=== PATIENT | female | born 1985 | race African-American/Black ===

== ENCOUNTER 2017-12-18 12:25 | Observation (INO) | payer MEDICAID ==
[~2017-12-18] VITALS: Ht 157.5 cm; Wt 102.1 kg
[2017-12-18] MEDS ORDERED: NIFEdipine 10 MG CAP PO ONE ×2 (14:29→14:30)
[2017-12-18] MEDS ORDERED: NIFEdipine 10 MG CAP ONE (14:29)
[2017-12-18] MEDS ORDERED: LACTATED RINGER'S 1,000 ML IV ONE (14:30)
[2017-12-18] MEDS ORDERED: ceFAZolin 1GM/100ML 100 ML IV ONE (14:30)
[2017-12-18] MEDS ORDERED: NIF10C GT (16:27)
== END 2017-12-18 16:20 | disposition home or self-care (01) | DRG 566 ==
LOC: LDRP 12:25
PROVIDERS: ADMIT Specialist; ATTEND Specialist
DX: O24.419 Gestational diabetes mellitus in pregnancy, unspecified control (principal); O60.03 Preterm labor without delivery, third trimester; Z3A.32 32 weeks gestation of pregnancy
CPT/HCPCS: 59025; 76818; 81002; 82948; 82962; 96365; G0378; J0690; 96366

== ENCOUNTER 2017-12-21 11:51 | Observation (INO) | payer MEDICAID ==
[~2017-12-21 11:51] MED LIST: NIF10C GT
[2017-12-21] MEDS ORDERED: TERBUTALINE SULFATE 1 MG/ML 1ML VIAL SC SCH (13:00)
== END 2017-12-21 14:25 | disposition home or self-care (01) | DRG 566 ==
LOC: LDRP 11:51
PROVIDERS: ADMIT Obstetrics & Gynecology; ATTEND Obstetrics & Gynecology
DX: O24.419 Gestational diabetes mellitus in pregnancy, unspecified control (principal); Z3A.00 Weeks of gestation of pregnancy not specified
CPT/HCPCS: 59025; 76818; 81002; 82948; 82962; 96372; G0378; J3105

== ENCOUNTER 2017-12-24 14:06 | Observation (INO) | payer MEDICAID | END 2017-12-24 16:05 | disposition home or self-care (01) | DRG 566 | LOC: LDRP 14:06 | PROVIDERS: ADMIT Specialist; ATTEND Specialist | DX: O24.419 Gestational diabetes mellitus in pregnancy, unspecified control (principal); O60.00 Preterm labor without delivery, unspecified trimester; Z3A.00 Weeks of gestation of pregnancy not specified | CPT/HCPCS: 59025; 76815; 76818; 81002; 82948; 82962; G0378 ==

== ENCOUNTER 2017-12-28 13:50 | Observation (INO) | payer OTHER ==
[2017-12-28] MEDS ORDERED: INSLANTI SC (14:12)
== END 2017-12-28 15:25 | disposition home or self-care (01) | DRG 566 ==
LOC: LDRP 13:50
PROVIDERS: ADMIT Specialist; ATTEND Specialist
DX: O24.419 Gestational diabetes mellitus in pregnancy, unspecified control (principal); O60.03 Preterm labor without delivery, third trimester; Z3A.33 33 weeks gestation of pregnancy
CPT/HCPCS: 59025; 76818; 81002; 82948; 82962; G0378

== ENCOUNTER 2017-12-31 11:00 | Observation (INO) | payer MEDICAID, OTHER ==
[~2017-12-31 11:00] MED LIST changes: +INSLANTI SC
[2017-12-31] MEDS ORDERED: PREN27TA7 PO (12:57)
== END 2017-12-31 13:15 | disposition home or self-care (01) | DRG 563 ==
LOC: LDRP 11:00
PROVIDERS: ADMIT Specialist; ATTEND Specialist
DX: O60.03 Preterm labor without delivery, third trimester (principal); Z3A.34 34 weeks gestation of pregnancy
CPT/HCPCS: 59025; 76818; 81002; G0378

== ENCOUNTER 2018-01-04 10:25 | Observation (INO) | payer MEDICAID ==
[~2018-01-04 10:25] MED LIST changes: +PREN27TA7 PO
== END 2018-01-04 11:55 | disposition home or self-care (01) | DRG 566 ==
LOC: LDRP 10:25
PROVIDERS: ADMIT Obstetrics & Gynecology; ATTEND Obstetrics & Gynecology
DX: O24.419 Gestational diabetes mellitus in pregnancy, unspecified control (principal); O60.03 Preterm labor without delivery, third trimester; O09.513 Supervision of elderly primigravida, third trimester; Z3A.34 34 weeks gestation of pregnancy
CPT/HCPCS: 76818; G0378; 59025; 81002

== ENCOUNTER 2018-01-07 10:35 | Observation (INO) | payer MEDICAID | END 2018-01-07 12:45 | disposition home or self-care (01) | DRG 566 | LOC: LDRP 10:35 | PROVIDERS: ADMIT Obstetrics & Gynecology; ATTEND Obstetrics & Gynecology | DX: O24.419 Gestational diabetes mellitus in pregnancy, unspecified control (principal); O60.03 Preterm labor without delivery, third trimester; Z3A.35 35 weeks gestation of pregnancy | CPT/HCPCS: 59025; 76818; 81002; G0378 ==

== ENCOUNTER 2018-01-11 11:00 | Observation (INO) | payer MEDICAID | END 2018-01-11 12:05 | disposition home or self-care (01) | DRG 566 | LOC: LDRP 11:00 | PROVIDERS: ADMIT Specialist; ATTEND Specialist | DX: O24.419 Gestational diabetes mellitus in pregnancy, unspecified control (principal); O60.03 Preterm labor without delivery, third trimester; Z3A.35 35 weeks gestation of pregnancy | CPT/HCPCS: 59025; 76818; 81002; 82948; G0378 ==

== ENCOUNTER 2018-01-14 10:20 | Observation (INO) | payer MEDICAID | END 2018-01-14 11:25 | disposition home or self-care (01) | DRG 566 | LOC: LDRP 10:20 | PROVIDERS: ADMIT Specialist; ATTEND Specialist | DX: O24.419 Gestational diabetes mellitus in pregnancy, unspecified control (principal); O09.513 Supervision of elderly primigravida, third trimester; Z3A.36 36 weeks gestation of pregnancy | CPT/HCPCS: 59025; 76818; 81002; 82948; 82962; G0378 ==

== ENCOUNTER 2018-01-16 11:10 | Observation (INO) | payer MEDICAID ==
[~2018-01-16] VITALS: Ht 157.5 cm; Wt 106.1 kg
[2018-01-16] MEDS: TERBUTALINE SULFATE 1 MG/ML 1ML VIAL SC SCH ×2 (13:10→13:55)
[2018-01-16] MEDS ORDERED: BETAMETHASONE ACET (6MG/ML) 5ML VIAL IM SCH (15:00)
== END 2018-01-16 15:10 | disposition home or self-care (01) | DRG 566 ==
LOC: LDRP 11:10
PROVIDERS: ADMIT Obstetrics & Gynecology; ATTEND Obstetrics & Gynecology
DX: O24.419 Gestational diabetes mellitus in pregnancy, unspecified control (principal); O60.03 Preterm labor without delivery, third trimester; O62.9 Abnormality of forces of labor, unspecified; Z3A.36 36 weeks gestation of pregnancy
CPT/HCPCS: 59025; 76818; 81002; 96372; G0378; J0702; J3105

== ENCOUNTER 2018-01-17 14:16 | Observation (INO) | payer MEDICAID ==
[~2018-01-17] VITALS: Ht 157.5 cm; Wt 88.9 kg
[2018-01-17] MEDS ORDERED: BETAMETHASONE ACET (6MG/ML) 5ML VIAL IM ONE (14:30)
== END 2018-01-17 15:10 | disposition home or self-care (01) | DRG 566 ==
LOC: INTOOBSV 14:16 → LDRP 14:16
PROVIDERS: ADMIT Obstetrics & Gynecology; ATTEND Obstetrics & Gynecology
DX: O24.419 Gestational diabetes mellitus in pregnancy, unspecified control (principal); O09.513 Supervision of elderly primigravida, third trimester; O60.03 Preterm labor without delivery, third trimester; Z3A.36 36 weeks gestation of pregnancy
CPT/HCPCS: 59025; 81002; 96372; G0378

== ENCOUNTER 2018-01-20 09:56 | Observation (INO) | payer MEDICAID | END 2018-01-20 12:10 | disposition home or self-care (01) | DRG 566 | LOC: LDRP 09:56 | PROVIDERS: ADMIT Obstetrics & Gynecology; ATTEND Obstetrics & Gynecology | DX: O24.419 Gestational diabetes mellitus in pregnancy, unspecified control (principal); O09.513 Supervision of elderly primigravida, third trimester; O62.9 Abnormality of forces of labor, unspecified; Z3A.37 37 weeks gestation of pregnancy | CPT/HCPCS: 59025; 76818; 81002; 82948; 82962; G0378 ==

== ENCOUNTER 2018-01-23 13:31 | Observation (INO) | payer MEDICAID | END 2018-01-23 15:10 | disposition home or self-care (01) | DRG 566 | LOC: LDRP 13:31 | PROVIDERS: ADMIT Specialist; ATTEND Specialist | DX: O24.419 Gestational diabetes mellitus in pregnancy, unspecified control (principal); Z3A.37 37 weeks gestation of pregnancy | CPT/HCPCS: 76818; 82962; G0378; 59025; 81002 ==

== ENCOUNTER 2018-01-27 13:03 | Observation (INO) | payer MEDICAID ==
[~2018-01-27 13:03] MED LIST changes: -NIF10C GT
== END 2018-01-27 15:05 | disposition home or self-care (01) | DRG 566 ==
LOC: LDRP 13:03
PROVIDERS: ADMIT Specialist; ATTEND Specialist
DX: O24.419 Gestational diabetes mellitus in pregnancy, unspecified control (principal); O26.893 Other specified pregnancy related conditions, third trimester; N89.8 Other specified noninflammatory disorders of vagina; O62.9 Abnormality of forces of labor, unspecified; Z3A.38 38 weeks gestation of pregnancy
CPT/HCPCS: 59025; 76818; 81002; 82962; G0378

== ENCOUNTER 2018-01-30 10:31 | Observation (INO) | payer MEDICAID | END 2018-01-30 12:05 | disposition home or self-care (01) | DRG 566 | LOC: LDRP 10:31 | PROVIDERS: ADMIT Obstetrics & Gynecology; ATTEND Obstetrics & Gynecology | DX: O24.419 Gestational diabetes mellitus in pregnancy, unspecified control (principal); Z3A.38 38 weeks gestation of pregnancy | CPT/HCPCS: 59025; 76818; 81002; 82962; G0378 ==

== ENCOUNTER 2020-09-02 13:51 | Emergency (ER) | payer MEDICAID ==
[~2020-09-02] VITALS: Ht 152.4 cm; Wt 93.0 kg
[2020-09-02 13:58] VITALS: BP 120/72
[2020-09-02 15:22] LABS: Eosinophils # (auto) 0 10 ^3/uL (0-0.8); Monocytes # (auto) 0.7 10 ^3/uL (0-1.3); Neutrophils # (auto) 5.9 10 ^3/uL (1.6-8.6); White Blood Cell 8.9 10^3/uL (4.4-10.8)
[2020-09-02 15:25] LABS: Basophils # (auto) 0 10 ^3/uL (0-0.2); Basophils % (auto) 0.5 % (0.0-2.0); Eosinophils % (auto) 0.6 % (0.0-7.0); Hematocrit 37.7 % (36.0-46.0); Hemoglobin 12.2 g/dL (12.2-16.2); Lymphocytes # (auto) 2.1 10 ^3/uL (0.4-5.4); Mean Corpuscular Hemoglobin 25.1 pg (28.0-32.0); Mean Corpuscular Hgb Conc. 32.4 g/dL (32.0-36.0); Mean Corpuscular Volume 77.3 fL (80.0-100.0); Monocytes % (auto) 8.3 % (0.0-12.0); Neutrophils % (auto) 66.6 % (37.0-80.0); Platelet Count (auto) 293 10^3/uL (140-450); Red Blood Cells 4.88 10^6/uL (4.0-5.20); Red Cell Distribution Width 14.8 % (11.8-14.3)
== END 2020-09-02 17:17 | disposition home or self-care (01) ==
LOC: ER 13:51
DX: O20.0 Threatened abortion (principal); Z3A.01 Less than 8 weeks gestation of pregnancy
CPT/HCPCS: 36415; 76801; 76817; 81002; 84702; 85025

== ENCOUNTER 2021-02-19 11:50 | Observation (INO) | payer MEDICAID | END 2021-02-19 13:35 | disposition home or self-care (01) | LOC: LDRP 11:50 | PROVIDERS: ADMIT Obstetrics & Gynecology; ATTEND Obstetrics & Gynecology | DX: O24.419 Gestational diabetes mellitus in pregnancy, unspecified control (principal); Z3A.30 30 weeks gestation of pregnancy; Z98.891 History of uterine scar from previous surgery; Z79.899 Other long term (current) drug therapy | CPT/HCPCS: 59025; 81002; 82948; 82962; 94760; G0378 ==

== ENCOUNTER 2021-02-26 09:50 | Observation (INO) | payer MEDICAID ==
[~2021-02-26 09:50] MED LIST changes: -INSLANTI SC
== END 2021-02-26 11:23 | disposition home or self-care (01) ==
LOC: LDRP 09:50
PROVIDERS: ADMIT Obstetrics & Gynecology; ATTEND Obstetrics & Gynecology
DX: O24.419 Gestational diabetes mellitus in pregnancy, unspecified control (principal); Z3A.31 31 weeks gestation of pregnancy; Z87.891 Personal history of nicotine dependence; Z79.899 Other long term (current) drug therapy
CPT/HCPCS: 59025; 76818; 81002; 82962; 94760; G0378

== ENCOUNTER 2021-03-05 09:44 | Observation (INO) | payer MEDICAID ==
[2021-03-05] MEDS ORDERED: METF-370 PO (10:14)
== END 2021-03-05 10:41 | disposition home or self-care (01) ==
LOC: LDRP 09:44
PROVIDERS: ADMIT Obstetrics & Gynecology; ATTEND Obstetrics & Gynecology
DX: O24.419 Gestational diabetes mellitus in pregnancy, unspecified control (principal); Z3A.32 32 weeks gestation of pregnancy
CPT/HCPCS: 59025; 76818; 81002; 82962; G0378

== ENCOUNTER 2021-03-12 09:36 | Observation (INO) | payer MEDICAID ==
[~2021-03-12 09:36] MED LIST changes: +METF-370 PO
== END 2021-03-12 11:30 | disposition home or self-care (01) ==
LOC: LDRP 09:36
PROVIDERS: ADMIT Obstetrics & Gynecology; ATTEND Obstetrics & Gynecology
DX: O24.415 Gestational diabetes mellitus in pregnancy, controlled by oral hypoglycemic drugs (principal); Z79.84 Long term (current) use of oral hypoglycemic drugs; Z79.899 Other long term (current) drug therapy; Z87.891 Personal history of nicotine dependence; Z3A.33 33 weeks gestation of pregnancy
CPT/HCPCS: 59025; 76818; 81002; 82948; 82962; 94760; G0378

== ENCOUNTER 2021-03-15 18:52 | Observation (INO) | payer MEDICAID ==
[~2021-03-15] VITALS: Ht 157.5 cm; Wt 150.6 kg
== END 2021-03-15 21:11 | disposition home or self-care (01) ==
LOC: LDRP 18:52
PROVIDERS: ADMIT Obstetrics & Gynecology; ATTEND Obstetrics & Gynecology
DX: O24.419 Gestational diabetes mellitus in pregnancy, unspecified control (principal); O09.529 Supervision of elderly multigravida, unspecified trimester; Z3A.33 33 weeks gestation of pregnancy; Z87.891 Personal history of nicotine dependence
CPT/HCPCS: 59025; 76818; 81002; 82948; 82962; 94760; G0378

== ENCOUNTER 2021-03-19 07:35 | Observation (INO) | payer MEDICAID | END 2021-03-19 21:58 | disposition home or self-care (01) | LOC: LDRP 19:10 | PROVIDERS: ADMIT Obstetrics & Gynecology; ATTEND Obstetrics & Gynecology | DX: O24.419 Gestational diabetes mellitus in pregnancy, unspecified control (principal); Z3A.34 34 weeks gestation of pregnancy | CPT/HCPCS: 59025; 76818; 81002; 82948; 82962; G0378 ==

== ENCOUNTER 2021-03-22 19:10 | Observation (INO) | payer MEDICAID ==
[~2021-03-22] VITALS: Ht 157.5 cm; Wt 146.5 kg
== END 2021-03-22 20:51 | disposition home or self-care (01) ==
LOC: LDRP 19:10
PROVIDERS: ADMIT Obstetrics & Gynecology; ATTEND Obstetrics & Gynecology
DX: O24.419 Gestational diabetes mellitus in pregnancy, unspecified control (principal); Z3A.34 34 weeks gestation of pregnancy
CPT/HCPCS: 59025; 76818; 81002; 82948; 82962; 94760; G0378

== ENCOUNTER 2021-03-26 13:22 | Observation (INO) | payer MEDICAID | END 2021-03-26 14:44 | disposition home or self-care (01) | LOC: LDRP 13:22 | PROVIDERS: ADMIT Obstetrics & Gynecology; ATTEND Obstetrics & Gynecology | DX: O24.419 Gestational diabetes mellitus in pregnancy, unspecified control (principal); Z3A.35 35 weeks gestation of pregnancy; Z87.891 Personal history of nicotine dependence | CPT/HCPCS: 76818; 82962; G0378; 59025; 81002; 82948 ==

== ENCOUNTER 2021-03-29 15:53 | Observation (INO) | payer MEDICAID | END 2021-03-29 17:45 | disposition home or self-care (01) | LOC: LDRP 15:53 | PROVIDERS: ADMIT Obstetrics & Gynecology; ATTEND Obstetrics & Gynecology | DX: O24.419 Gestational diabetes mellitus in pregnancy, unspecified control (principal); Z3A.35 35 weeks gestation of pregnancy; Z87.891 Personal history of nicotine dependence | CPT/HCPCS: 59025; 76818; 81002; 82948; 82962; 94760; G0378 ==

== ENCOUNTER 2021-04-03 09:02 | Observation (INO) | payer MEDICAID ==
[2021-04-03 10:06] LABS: Basophils # (auto) 0 10 ^3/uL (0-0.2); Basophils % (auto) 0.4 % (0.0-2.0); Eosinophils # (auto) 0 10 ^3/uL (0-0.8); Eosinophils % (auto) 0.4 % (0.0-7.0); Lymphocytes # (auto) 1.3 10 ^3/uL (0.4-5.4)
[2021-04-03 10:08] LABS: Hematocrit 36.3 % (36.0-46.0); Hemoglobin 11.9 g/dL (12.2-16.2); Lymphocytes % (auto) 17.6 % (10.0-50.0); Mean Corpuscular Hemoglobin 24.6 pg (28.0-32.0); Mean Corpuscular Hgb Conc. 32.7 g/dL (32.0-36.0); Mean Corpuscular Volume 75.3 fL (80.0-100.0); Monocytes # (auto) 0.7 10 ^3/uL (0-1.3); Monocytes % (auto) 9.2 % (0.0-12.0); Neutrophils # (auto) 5.5 10 ^3/uL (1.6-8.6); Neutrophils % (auto) 72.4 % (37.0-80.0); Nucleated Red Blood Cells % 0.1 %; Red Blood Cells 4.83 10^6/uL (4.0-5.20); White Blood Cell 7.7 10^3/uL (4.4-10.8)
[2021-04-04 06:06] LABS: RPR Non Reactive (Non Reactive)
== END 2021-04-03 10:25 | disposition home or self-care (01) ==
LOC: LDRP 09:02
PROVIDERS: ADMIT Obstetrics & Gynecology; ATTEND Obstetrics & Gynecology
DX: O24.435 Gestational diabetes mellitus in puerperium, controlled by oral hypoglycemic drugs (principal); Z3A.36 36 weeks gestation of pregnancy
CPT/HCPCS: 36415; 59025; 76818; 81002; 82948; 82962; 83036; 85025; 86592; G0378; G0379

== ENCOUNTER 2021-04-05 07:22 | Observation (INO) | payer MEDICAID ==
[~2021-04-05] VITALS: Ht 157.5 cm; Wt 107.5 kg
[2021-04-05] MEDS: TERBUTALINE SULFATE 1 MG/ML 1ML VIAL SC SCH ×3 (18:08→19:22)
[2021-04-05] MEDS ORDERED: NIFEdipine 10 MG CAP PO ONE (19:15)
[2021-04-05] MEDS ORDERED: NIF10C PO (20:46)
== END 2021-04-05 20:54 | disposition home or self-care (01) ==
LOC: LDRP 15:56
PROVIDERS: ADMIT Obstetrics & Gynecology; ATTEND Obstetrics & Gynecology
DX: O24.419 Gestational diabetes mellitus in pregnancy, unspecified control (principal); Z3A.36 36 weeks gestation of pregnancy; Z98.891 History of uterine scar from previous surgery
CPT/HCPCS: 59025; 76818; 81002; 82948; 82962; 94760; 96372; G0378; J3105

== ENCOUNTER 2021-04-07 15:46 | Observation (INO) | payer MEDICAID ==
[~2021-04-07 15:46] MED LIST changes: +NIF10C PO
== END 2021-04-07 16:25 | disposition home or self-care (01) ==
LOC: LDRP 15:46
PROVIDERS: ADMIT Obstetrics & Gynecology; ATTEND Obstetrics & Gynecology
DX: O24.419 Gestational diabetes mellitus in pregnancy, unspecified control (principal); O62.9 Abnormality of forces of labor, unspecified; Z3A.37 37 weeks gestation of pregnancy
CPT/HCPCS: 59025; 81002; 82962; 94760; G0378; G0379

== ENCOUNTER 2021-04-10 10:18 | Observation (INO) | payer MEDICAID ==
[~2021-04-10] VITALS: Ht 157.5 cm; Wt 106.6 kg
== END 2021-04-10 12:00 | disposition home or self-care (01) ==
LOC: LDRP 10:22
PROVIDERS: ADMIT Obstetrics & Gynecology; ATTEND Obstetrics & Gynecology
DX: O24.419 Gestational diabetes mellitus in pregnancy, unspecified control (principal); Z3A.37 37 weeks gestation of pregnancy; Z98.891 History of uterine scar from previous surgery
CPT/HCPCS: 59025; 76818; 81002; 82948; 82962; 94760; G0378

== ENCOUNTER 2021-04-12 16:12 | Observation (INO) | payer MEDICAID | END 2021-04-12 17:35 | disposition home or self-care (01) | LOC: LDRP 16:12 | PROVIDERS: ADMIT Obstetrics & Gynecology; ATTEND Obstetrics & Gynecology | DX: O24.419 Gestational diabetes mellitus in pregnancy, unspecified control (principal); Z3A.37 37 weeks gestation of pregnancy; Z87.891 Personal history of nicotine dependence | CPT/HCPCS: 59025; 76818; 81002; 82948; 82962; G0378; G0379 ==

== ENCOUNTER 2021-04-17 09:55 | Observation (INO) | payer MEDICAID | END 2021-04-17 12:03 | disposition home or self-care (01) | LOC: LDRP 09:55 | PROVIDERS: ADMIT Obstetrics & Gynecology; ATTEND Obstetrics & Gynecology | DX: O24.419 Gestational diabetes mellitus in pregnancy, unspecified control (principal); Z3A.38 38 weeks gestation of pregnancy; Z87.891 Personal history of nicotine dependence | CPT/HCPCS: 59025; 76818; 81002; 82962; G0378 ==

== ENCOUNTER 2021-04-20 03:49 | Inpatient (IN) | payer MEDICAID ==
[2021-04-20] VITALS (10 sets, daily range): BP systolic 104–135; BP diastolic 39–74
[~2021-04-20] VITALS: Ht 157.5 cm; Wt 105.2 kg
[2021-04-20] MEDS ORDERED: LACTATED RINGER'S 1,000 ML IV ONE (04:15)
[2021-04-20 04:52] LABS: Hematocrit 36.8 % (36.0-46.0); Hemoglobin 12.1 g/dL (12.2-16.2); Neutrophils # (auto) 4.6 10 ^3/uL (1.6-8.6)
[2021-04-20 04:54] LABS: Basophils # (auto) 0 10 ^3/uL (0-0.2); Basophils % (auto) 0.5 % (0.0-2.0); Eosinophils # (auto) 0 10 ^3/uL (0-0.8); Eosinophils % (auto) 0.5 % (0.0-7.0); Lymphocytes % (auto) 27.1 % (10.0-50.0); Mean Corpuscular Hemoglobin 24.4 pg (28.0-32.0); Mean Corpuscular Hgb Conc. 32.8 g/dL (32.0-36.0); Mean Corpuscular Volume 74.4 fL (80.0-100.0); Monocytes # (auto) 0.8 10 ^3/uL (0-1.3); Neutrophils % (auto) 61.9 % (37.0-80.0); Red Blood Cells 4.94 10^6/uL (4.0-5.20); Red Cell Distribution Width 15.5 % (11.8-14.3); White Blood Cell 7.5 10^3/uL (4.4-10.8)
[2021-04-20 05:02] LABS: INR 0.94 (0.9-1.15); Partial Thromboplastin Time 26.9 sec (23.6-33.0)
[2021-04-20 05:08] LABS: Albumin 2.4 g/dL (3.4-5.0); Calcium 8.9 mg/dL (8.5-10.1); Potassium 3.7 mmol/L (3.5-5.1)
[2021-04-20 05:10] LABS: Bilirubin, Total 0.2 mg/dL (0.2-1.0); Total Protein 6.7 g/dL (6.4-8.2)
[2021-04-20 05:42] LABS: Alcohol, Urine < 3.0 mg/dL (0-10); Amphetamine Screen, Urine NEGATIVE (NEGATIVE); Barbiturate Scree,Urine NEGATIVE (NEGATIVE); Benzodiazephine Screen, Urine NEGATIVE (NEGATIVE); Cannabinoid Screen, Urine NEGATIVE (NEGATIVE); Cocaine Screen, Urine NEGATIVE (NEGATIVE); Opiate Scree,Urine NEGATIVE (NEGATIVE); Phencyclidine Screen, Urine NEGATIVE (NEGATIVE)
[2021-04-20] MEDS: LACTATED RINGER'S 1,000 ML IV SCH ×2 (05:42→15:45)
[2021-04-20 05:57] LABS: Urine Bacteria FEW /hpf (None Seen); Urine Blood Negative /uL (Negative); Urine Specific Gravity 1.003 (1.001-1.035); Urine WBC 2 /hpf (0 - 5)
[2021-04-20] MEDS ORDERED: ceFAZolin 1GM/50ML 50 ML IV ONE (06:00)
[2021-04-20] MEDS ORDERED: TETRACAINE 1% INJ 2 ML VIAL IJ ONE (07:52)
[2021-04-20] MEDS ORDERED: ONDANSETRON HCL 4 MG/2 ML VIAL ONE (07:54)
[2021-04-20] MEDS ORDERED: oxyTOCIN 10 UNIT/ML 10ML VIAL ONE (07:54)
[2021-04-20] MEDS ORDERED: BUPIVACAINE/DEXTROSE MPF 0.75% 2 ML AMP IT ONE (07:54)
[2021-04-20] MEDS ORDERED: MORPHINE SULF PF 2 MG/2 ML SYRG ONE ×2 (07:54→07:55)
[2021-04-20] MEDS ORDERED: EPINEPHrine HCL 1 MG/1 ML AMP ONE (07:54)
[2021-04-20] MEDS ORDERED: MIDAZOLAM HCL 2MG/2ML 2ml VIAL (1mg/ml) ONE (07:54)
[2021-04-20] MEDS ORDERED: fentaNYL CITRATE 100 MCG/2 ML VL ONE (07:54)
[2021-04-20] MEDS ORDERED: ePHEDrine SULFATE 50 MG/ML AMP ONE (08:36)
[2021-04-20] MEDS ORDERED: GUM (CHEWING) 1 GUM CHEW CHEW ONE (09:00)
[2021-04-20] MEDS ORDERED: ceFAZolin 1GM/50ML 50 ML IV SCH (09:00)
[2021-04-20] MEDS ORDERED: ONDANSETRON HCL 4 MG/2 ML VIAL IV PRN (09:00)
[2021-04-20] MEDS ORDERED: LACT. RINGERS/OXYTOCIN 20UNITS 1,000 ML IV ONE (09:00)
[2021-04-20] MEDS ORDERED: MORPHINE SULFATE 4 MG/ML SYR/VIAL IV PRN (10:45)
[2021-04-20] MEDS: HYDROmorphone HCL 2 MG/ML VL IV PRN ×3 (11:44→20:44)
[2021-04-20] MEDS: ACETAMINOPHEN IV 1000 MG/100ML (10MG/ML) IV PRN ×2 (12:47→21:51)
[2021-04-20] MEDS: ceFAZolin 1GM/50ML 50 ML IV SCH ×2 (15:50→23:33)
[2021-04-20 21:12] LABS: Mean Corpuscular Hemoglobin 23.9 pg (28.0-32.0)
[2021-04-20 21:13] LABS: Basophils # (auto) 0 10 ^3/uL (0-0.2); Basophils % (auto) 0.3 % (0.0-2.0); Eosinophils # (auto) 0 10 ^3/uL (0-0.8); Eosinophils % (auto) 0.1 % (0.0-7.0); Hematocrit 34.8 % (36.0-46.0); Lymphocytes # (auto) 1.2 10 ^3/uL (0.4-5.4); Lymphocytes % (auto) 14.3 % (10.0-50.0); Mean Corpuscular Hgb Conc. 31.7 g/dL (32.0-36.0); Mean Corpuscular Volume 75.4 fL (80.0-100.0); Monocytes # (auto) 0.9 10 ^3/uL (0-1.3); Monocytes % (auto) 10.7 % (0.0-12.0); Neutrophils # (auto) 6.1 10 ^3/uL (1.6-8.6); Neutrophils % (auto) 74.6 % (37.0-80.0); Red Blood Cells 4.62 10^6/uL (4.0-5.20); Red Cell Distribution Width 15.2 % (11.8-14.3); White Blood Cell 8.1 10^3/uL (4.4-10.8)
[2021-04-21] MEDS: LACTATED RINGER'S 1,000 ML IV SCH (02:24)
[2021-04-21 02:50] VITALS: BP 130/82
[2021-04-21] MEDS: HYDROmorphone HCL 2 MG/ML VL IV PRN (02:59)
[2021-04-21 06:06] LABS: RPR Non Reactive (Non Reactive)
[2021-04-21 07:00] VITALS: BP 122/71
[2021-04-21 07:19] LABS: Basophils # (auto) 0 10 ^3/uL (0-0.2); Basophils % (auto) 0.4 % (0.0-2.0); Eosinophils # (auto) 0 10 ^3/uL (0-0.8); Eosinophils % (auto) 0.3 % (0.0-7.0); Hematocrit 34.7 % (36.0-46.0); Hemoglobin 11.2 g/dL (12.2-16.2); Lymphocytes # (auto) 1.2 10 ^3/uL (0.4-5.4); Lymphocytes % (auto) 15.7 % (10.0-50.0); Mean Corpuscular Hemoglobin 24.6 pg (28.0-32.0); Mean Corpuscular Hgb Conc. 32.3 g/dL (32.0-36.0); Mean Corpuscular Volume 76.2 fL (80.0-100.0); Monocytes # (auto) 0.9 10 ^3/uL (0-1.3); Monocytes % (auto) 11.6 % (0.0-12.0); Neutrophils # (auto) 5.7 10 ^3/uL (1.6-8.6); Red Blood Cells 4.56 10^6/uL (4.0-5.20); Red Cell Distribution Width 15.6 % (11.8-14.3); White Blood Cell 7.9 10^3/uL (4.4-10.8)
[2021-04-21] MEDS: ACETAMINOPHEN IV 1000 MG/100ML (10MG/ML) IV PRN (07:29)
[2021-04-21] MEDS: ceFAZolin 1GM/50ML 50 ML IV SCH (08:14)
[2021-04-21 11:00] VITALS: BP 113/70
[2021-04-21] MEDS ORDERED: HYDROcodone-ACET 5/325MG TAB PO PRN (11:15)
[2021-04-21] MEDS ORDERED: SIMETHICONE 80 MG CHEWABLE TABLET PO PRN (11:15)
[2021-04-21] MEDS: IBUPROFEN 800 MG TAB PO PRN ×2 (11:27→23:15)
[2021-04-21 15:00] VITALS: BP 113/70
[2021-04-21] MEDS: HYDROcodone-ACET 5/325MG TAB PO PRN (17:01)
[2021-04-21] MEDS: DOCUSATE SOD 100 MG CAP PO SCH (22:02)
[2021-04-22 03:08] VITALS: BP 104/64
[2021-04-22 11:23] VITALS: BP 117/67
[2021-04-22] MEDS: DOCUSATE SOD 100 MG CAP PO SCH ×2 (11:38→21:25)
[2021-04-22] MEDS: IBUPROFEN 800 MG TAB PO PRN ×2 (11:39→21:25)
[2021-04-22 15:00] VITALS: BP 108/72
[2021-04-22] MEDS: HYDROcodone-ACET 5/325MG TAB PO PRN (16:35)
[2021-04-22 19:00] VITALS: BP 105/71
[2021-04-22 22:51] VITALS: BP 122/73
[2021-04-23 03:00] VITALS: BP 109/67
[2021-04-23] MEDS: IBUPROFEN 800 MG TAB PO PRN (05:34)
[2021-04-23 07:30] VITALS: BP 116/66
== END 2021-04-23 09:25 | disposition home or self-care (01) | DRG 540 ==
LOC: LDRP 03:49
PROVIDERS: ADMIT Obstetrics & Gynecology; ATTEND Obstetrics & Gynecology
PROC: 10D00Z1 Extraction of Products of Conception, Low, Open Approach (ICD-10-PCS; principal; 2021-04-20 08:05)
DX: O34.211 Maternal care for low transverse scar from previous cesarean delivery (principal); O24.429 Gestational diabetes mellitus in childbirth, unspecified control; Z37.0 Single live birth; Z3A.38 38 weeks gestation of pregnancy
CPT/HCPCS: 36415; 59025; 80053; 80307; 81001; 82947; 82948; 82962; 85025; 85610; 85730; 86592; 86850; 86900; 86901; 94760; 94762; 96360; 96361; G0378; J0131; J0171; J0690; J2250; J2405; J2590

== ENCOUNTER 2024-03-29 16:29 | Emergency (ER) | payer MEDICAID ==
[~2024-03-29] VITALS: Ht 157.5 cm; Wt 99.1 kg
[~2024-03-29 16:29] MED LIST changes: -NIF10C PO
[2024-03-29 19:11] LABS: Urine Bacteria FEW /hpf (None Seen); Urine Blood 3+ /uL (Negative); Urine Clarity Clear (Clear); Urine Color Colorless (Yellow); Urine Protein, UAD Negative (Negative); Urine Specific Gravity 1.002 (1.001-1.035); Urine Urobilinogen Normal (Negative); Urine WBC <1 /hpf (0 - 5)
[2024-03-29 19:56] LABS: Basophils # (auto) 0.1 10 ^3/uL (0-0.2); Basophils % (auto) 1.2 % (0.0-2.0); Eosinophils # (auto) 0.1 10 ^3/uL (0-0.8); Eosinophils % (auto) 0.7 % (0.0-7.0); Hemoglobin 12.3 g/dL (12.2-16.2); Lymphocytes # (auto) 2.3 10 ^3/uL (0.4-5.4); Lymphocytes % (auto) 31.7 % (10.0-50.0); Mean Corpuscular Hemoglobin 21.7 pg (28.0-32.0); Mean Corpuscular Hgb Conc. 30.8 g/dL (32.0-36.0); Mean Corpuscular Volume 70.4 fL (80.0-100.0); Monocytes # (auto) 0.5 10 ^3/uL (0-1.3); Monocytes % (auto) 6.8 % (0.0-12.0); Neutrophils # (auto) 4.3 10 ^3/uL (1.6-8.6); Neutrophils % (auto) 59.6 % (37.0-80.0); Nucleated Red Blood Cells % 0.1 %; Platelet Count (auto) 342 10^3/uL (140-450); Red Blood Cells 5.68 10^6/uL (4.0-5.20); Red Cell Distribution Width 18.2 % (11.8-14.3); White Blood Cell 7.1 10^3/uL (4.4-10.8)
[2024-03-29 20:16] LABS: Alanine Aminotransferase 16 U/L (7-40); Albumin 4.6 g/dL (3.2-4.8); Alkaline Phosphatase 59 U/L (46-116); Anion Gap 6 (5-15); Aspartate Aminotransferase 11 U/L (13-40); BUN/Creatinine Ratio 11.3 (10.0-20.0); Blood Urea Nitrogen 7 mg/dL (9-23); Calcium 9.7 mg/dL (8.7-10.4); Carbon Dioxide 25 mmol/L (20-30); Chloride 106 mmol/L (98-107); Glucose 100 mg/dL (74-106); Potassium 3.9 mmol/L (3.5-5.1); Sodium 137 mmol/L (136-145)
[2024-03-29 20:17] LABS: Bilirubin, Total 0.2 mg/dL (0.2-1.0); Total Protein 7.5 g/dL (5.7-8.2)
[2024-03-29 23:52] VITALS: BP 119/67; TEMP 98
[2024-03-29 23:58] VITALS: PULSE 64; RESP 18; O2SAT 100
== END 2024-03-30 | disposition home or self-care (01) ==
LOC: ER 16:29
DX: O20.9 Hemorrhage in early pregnancy, unspecified (principal); R10.2 Pelvic and perineal pain; Z3A.01 Less than 8 weeks gestation of pregnancy; Z98.890 Other specified postprocedural states; Z79.899 Other long term (current) drug therapy
CPT/HCPCS: 36415; 76801; 76817; 80053; 81001; 81025; 84702; 85025; 86850; 86900; 86901